=== PATIENT | male | born 1995 | race Caucasian/White ===

== ENCOUNTER 2022-06-20 18:19 | Emergency (ER) | payer MEDICAID ==
[~2022-06-20] VITALS: Ht 162.6 cm; Wt 94.7 kg
[2022-06-20 18:32] VITALS: BP 128/79
[2022-06-20] MEDS ORDERED: HYDROcodone/acetaminophen 5mg/325mg tablet PO ONE (19:45)
[2022-06-21] MEDS ORDERED: HYDR-3965 PO (13:27)
== END 2022-06-20 20:32 | disposition home or self-care (01) ==
LOC: ER 18:20
DX: R07.81 Pleurodynia (principal); R10.11 Right upper quadrant pain; W19.XXXA Unspecified fall, initial encounter; Y93.89 Activity, other specified; Y92.89 Other specified places as the place of occurrence of the external cause; Y99.8 Other external cause status
CPT/HCPCS: 71111; 99284

== ENCOUNTER 2024-03-21 10:13 | Emergency (ER) | payer MEDICAID ==
[~2024-03-21] VITALS: Ht 162.6 cm; Wt 90.0 kg
[2024-03-21 10:18] VITALS: BP 147/95; PULSE 71; O2SAT 98
[2024-03-21] MEDS: diphenhydrAMINE 25mg capsule PO ONE (11:31)
[2024-03-21] MEDS ORDERED: MUPI22OI30 TOP (11:33)
[2024-03-21] MEDS ORDERED: DIPH25CA52 PO (11:33)
[2024-03-21] MEDS: triamcinolone acetonide 40mg/ml inj IM ONE (11:33)
[2024-03-21 11:38] VITALS: RESP 16; TEMP 98
== END 2024-03-21 11:40 | disposition home or self-care (01) ==
LOC: ER 10:13
DX: S00.86XA Insect bite (nonvenomous) of other part of head, initial encounter (principal); L23.9 Allergic contact dermatitis, unspecified cause; Z79.2 Long term (current) use of antibiotics; Z79.899 Other long term (current) drug therapy; W57.XXXA Bitten or stung by nonvenomous insect and other nonvenomous arthropods, initial encounter; Y93.89 Activity, other specified; Y92.89 Other specified places as the place of occurrence of the external cause; Y99.8 Other external cause status
CPT/HCPCS: 96372; 99283; J3301; Q0163

== ENCOUNTER 2024-03-30 02:03 | Emergency (ER) | payer MEDICAID ==
[~2024-03-30] VITALS: Ht 167.6 cm; Wt 88.6 kg
[~2024-03-30 02:03] MED LIST: DIPH25CA52 PO
[2024-03-30 02:09] VITALS: TEMP 97.2
[2024-03-30] MEDS ORDERED: MUPI22OI30 TOP (06:47)
[2024-03-30] MEDS ORDERED: DIPH25CA83 PO (06:47)
[2024-03-30 07:13] VITALS: BP 125/76; PULSE 56; RESP 18; O2SAT 97
== END 2024-03-30 07:15 | disposition home or self-care (01) ==
LOC: ER 02:04
DX: L25.9 Unspecified contact dermatitis, unspecified cause (principal)
CPT/HCPCS: 99283

== ENCOUNTER 2024-04-02 23:57 | Emergency (ER) | payer MEDICAID ==
[~2024-04-02] VITALS: Ht 162.6 cm; Wt 90.0 kg
[~2024-04-02 23:57] MED LIST changes: +DIPH25CA83 PO; +MUPI22OI30 TOP
[2024-04-03 00:17] VITALS: BP 154/98; PULSE 67; RESP 18; TEMP 98.2; O2SAT 99
[2024-04-03] MEDS ORDERED: PERM60CR19 TOP (00:52)
== END 2024-04-03 01:02 | disposition home or self-care (01) ==
LOC: ER 23:57
DX: S00.06XA Insect bite (nonvenomous) of scalp, initial encounter (principal); W57.XXXA Bitten or stung by nonvenomous insect and other nonvenomous arthropods, initial encounter; Y93.89 Activity, other specified; Y92.89 Other specified places as the place of occurrence of the external cause; Y99.8 Other external cause status
CPT/HCPCS: 99282

== ENCOUNTER 2024-04-09 00:36 | Emergency (ER) | payer MEDICAID ==
[~2024-04-09] VITALS: Ht 162.6 cm; Wt 90.0 kg
[~2024-04-09 00:36] MED LIST changes: -MUPI22OI30 TOP; +PERM60CR19 TOP
[2024-04-09 00:41] VITALS: BP 145/87; PULSE 70; RESP 16; TEMP 98; O2SAT 98
== END 2024-04-09 02:17 | disposition home or self-care (01) ==
LOC: ER 00:36
DX: R21 Rash and other nonspecific skin eruption (principal); Z76.0 Encounter for issue of repeat prescription
CPT/HCPCS: 99281

== ENCOUNTER 2024-04-18 00:29 | Emergency (ER) | payer MEDICAID ==
[~2024-04-18] VITALS: Ht 162.6 cm; Wt 81.8 kg
[2024-04-18 00:32] VITALS: BP 134/76; PULSE 75; RESP 18; TEMP 97.9; O2SAT 96
[2024-04-18] MEDS ORDERED: PERM60CR19 TP (05:01)
== END 2024-04-18 05:16 | disposition home or self-care (01) ==
LOC: ER 00:30
DX: Z76.0 Encounter for issue of repeat prescription (principal); R21 Rash and other nonspecific skin eruption; Z79.899 Other long term (current) drug therapy
CPT/HCPCS: 99281

== ENCOUNTER 2024-04-30 00:29 | Emergency (ER) | payer MEDICAID ==
[~2024-04-30] VITALS: Ht 167.6 cm; Wt 81.6 kg
[~2024-04-30 00:29] MED LIST changes: +PERM60CR19 TP
[2024-04-30 00:50] VITALS: BP 131/85; PULSE 71; RESP 16; TEMP 98.2; O2SAT 95
[2024-04-30] MEDS ORDERED: PERM60CR19 TOP (02:55)
== END 2024-04-30 02:58 | disposition home or self-care (01) ==
LOC: ER 00:31
DX: B86 Scabies (principal); Z76.0 Encounter for issue of repeat prescription; Z79.899 Other long term (current) drug therapy
CPT/HCPCS: 99281